=== PATIENT | female | born 1985 | race Caucasian/White ===

== ENCOUNTER 2020-11-04 22:00 | Emergency (ER) | payer BC, MEDICAID, SELFPAY ==
[2020-11-04 22:10] VITALS: BP 133/89; PULSE 118; RESP 20; TEMP 36.1; O2SAT 95; BMI 25.0
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
[2020-11-04 22:51] LABS: Glucose Urine UA NEG (NEG); Leukocyte Esterase Urine NEG (NEG); Nitrite Urine NEG (NEG); Specific Gravity - Urine <= 1.005 (1.005-1.025); Urine Blood NEG (NEG); Urine Ketones NEG (NEG); Urine Protein NEG (NEG-TRACE)
[2020-11-04 22:53] LABS: COVID-19 Test Negative (Negative)
[2020-11-04 23:05] LABS: RBC Urine 0 /HPF (0); Squamous Epithelial Cell Urine TRACE /LPF; UPreg QC Valid YES; Urine Pregnancy NEGATIVE (NEGATIVE); WBC Urine 0-2 /HPF (0-4)
[2020-11-04 23:11] LABS: Amphetamine Screen Urine Not Detected (Not Detect); Barbiturates, Urine Not Detected (Not Detect); Benzodiazepines Screen Urine Not Detected (Not Detect); Cannabinoid Screen Urine Not Detected (Not Detect); Cocaine Screen Urine Not Detected (Not Detect); Fentanyl, urine Not Detected (Not Detect); Opiate Screen Urine Not Detected (Not Detect); Phencyclidine Screen Urine Not Detected (Not Detect)
[2020-11-04 23:11] LABS: Appearance Urine CLEAR; Color Urine STRAW
[2020-11-05] MEDS: clonazePAM 0.5 MG TABLET PO (00:06)
[2020-11-05] MEDS: busPIRone HCl 5 MG TABLET 7.5 MG PO (00:06)
[2020-11-05 00:45] VITALS: BP 133/83; PULSE 120; RESP 20; TEMP 37.1; O2SAT 98
== END 2020-11-05 04:50 | disposition home or self-care (01) ==
PROVIDERS: Physician Assistant; Emergency Provider Student in an Organized Health Care Education/Training Program
DX: F10.920 Alcohol use, unspecified with intoxication, uncomplicated (principal); Z20.822 Contact with and (suspected) exposure to COVID-19; F41.9 Anxiety disorder, unspecified; Z79.899 Other long term (current) drug therapy
CPT/HCPCS: 36415; 80307; 81001; 81025; 87635; 99283

== ENCOUNTER 2021-02-28 07:22 | Outpatient (REF) | payer BC, SELFPAY ==
[2021-02-28 08:05] LABS: COVID-19 Test Negative (Negative); IDNOW Serial# 16C4AD1C
== END 2021-02-28 07:23 | disposition home or self-care (01) ==
LOC: HO.LAB 07:22
PROVIDERS: Visit Provider Internal Medicine
DX: Z20.822 Contact with and (suspected) exposure to COVID-19 (principal)
CPT/HCPCS: 36415; 87635; C9803